=== PATIENT | male | born 1940 | race Caucasian/White ===

== ENCOUNTER → 2024-01-02 06:45 | Outpatient (REF) | payer MEDICARE, OTHER, SELFPAY ==
[2024-01-02 08:40] LABS: Blood Urea Nitrogen 32 mg/dl (9-20); Calcium 9.7 mg/dl (8.4-10.2); Carbon Dioxide 26 mmol/L (22-30); Chloride 104 mmol/L (98-107); Glucose 101 mg/dl (70-99); Potassium 4.5 mmol/L (3.5-5.1); Sodium 142 mmol/L (135-145); Uric Acid 4.4 mg/dl (3.5-8.5); eGFR 42.49
[2024-01-03 17:15] LABS: PSA Total 0.7 ng/mL (0.0-4.0)
== END ==
LOC: REG 06:45
PROVIDERS: ATTENDING PHYSICIAN Internal Medicine; REFERRING PHYSICIAN Specialist
DX: I10 Essential (primary) hypertension (principal); M10.9 Gout, unspecified; N40.1 Benign prostatic hyperplasia with lower urinary tract symptoms; E78.5 Hyperlipidemia, unspecified; R73.03 Prediabetes; N18.31 Chronic kidney disease, stage 3a
CPT/HCPCS: 36415; 80048; 83036; 84153; 84154; 84550

== ENCOUNTER 2024-05-23 12:06 | Emergency (ER) | payer MEDICARE, OTHER, SELFPAY ==
[2024-05-23 12:16] VITALS: BP 115/72
--- NOTE | 2024-05-23 13:52 | ED.GENMED ---
History of Present Illness
General
Chief Complaint: Musculo-Skeletal Complaint
Time Seen by Provider: 05/23/24 13:24
History of Present Illness
History of Present Illness:
Patient is a 83-year-old man with history of hypertension presenting to the emergency room after a fall. Patient slipped and fell down 8 steps. Initially he told nursing that he did not hit his head however to me he stated that he did hit his
head. However he states that the most injury occurred to his left shoulder. He states that there is pain with movement of the shoulder. No numbness tingling. No weakness. He was ambulatory. He did not lose consciousness. He is not on a blood
thinner.
Phy Exam
Physical Exam
Physical Exam:
GENERAL: no acute distress
HEENT: atraumatic, extraocular muscles intact, no signs of entrapment, dentition intact, no other obvious trauma
NECK: no midline tenderness, normal range of motion
BACK: no midline tenderness, no other obvious trauma
CHEST: no tenderness, no flail segment, no subcutaneous emphysema, no other obvious trauma
LUNGS: clear to auscultation bilaterally
CARDIOVASCULAR: regular rate and rhythm
ABDOMEN: soft, non-tender, no masses, no other obvious trauma
PELVIS: stable, no obvious injury
EXTREMITIES: Left upper extremity with tenderness to the distal clavicle with some bruising, no skin tenting or obvious abnormality otherwise moving all extremities, distal pulses intact, no other obvious trauma
NEUROLOGIC: awake, alert x 3, no focal deficits
Course
Orders/Labs/Results
Orders:
Orders
05/23/24 12:28
CR Shoulder, Trauma - Left Urgent
Comment:
Reason For Exam: fall
05/23/24 13:51
CT Cervical Spine W/o Iv Contr Urgent
Comment:
Reason For Exam: fall
CT Head W/o Iv Contrast Urgent
Comment:
Reason For Exam: fall
05/23/24 13:57
Shoulder Immobilizer Left- Tx ONCE
Vital Signs
Initial and Last Documented VS:
Initial Vital Signs
Temp Pulse BP Pulse Ox
97.5 F 67 115/72 94
05/23/24 12:16 05/23/24 12:16 05/23/24 12:16 05/23/24 12:16
Last Documented Vital Signs
Temp Pulse BP Pulse Ox
97.5 F 67 115/72 94
05/23/24 12:16 05/23/24 12:16 05/23/24 12:16 05/23/24 12:16
MDM/Problems Addressed
Differential Diagnosis Includes:
Patient is a 83-year-old man presenting to the emergency department after a fall with head strike and left shoulder pain. Vitals unremarkable and exam does show tenderness to the distal clavicle. X-ray obtained prior to my evaluation does show a
distal clavicle fracture per my interpretation. Per the official read it is comminuted. Given the comminution we will discuss with orthopedics in case he needs operative management. Given the patient had a head strike with his age and the fall
down 8 steps I did discuss [address] head with concern for traumatic intracranial injury patient is in agreement with obtaining CT head and neck.
*Critical Care Note
Total Time (30-74mins, 75-104mins- exclusive of procedures): Not Applicable
Update Note
Update Note:
I did discuss with orthopedic Dr. Beaulieu regarding the clavicle fracture as it is comminuted and could require operative management. Orthopedic is in agreement with sling and outpatient management. Patient advised to keep the sling on day and
night and only to remove it when showering. CT scan of the head and neck with no acute abnormality. Patient aware of the degenerative disc disease. Will discharge at this time with strict return precautions.
ED Attending Note
-
Portions of this chart may have been created with voice recognition software.� Occasional wrong word or��sound alike� substitutions may have occurred due to the inherent limitations of voice recognition software.
Discharge Plan
Departure
Patient Disposition: Home (Routine Discharge)
Date of Disposition: 05/23/24
Time of Disposition: 16:46
Patient with high blood pressure during this ER visit?: No
Discharge Problem:
Clavicle fracture
Instructions: How to Use a Shoulder Sling
Prescriptions:
No Action
fexofenadine [Suzie] 180 mg Tablet
180 mg PO DAILYPRN PRN (Reason: allergies)
acetaminophen [Tylenol Extra Strength] 500 mg Tablet
500 mg PO Q6HPRN PRN (Reason: mild pain)
lisinopril-hydrochlorothiazide 10-12.5 mg Tablet
1 tab PO DAILY
finasteride 5 mg Tablet
5 mg PO Q48H
febuxostat 80 mg Tablet
80 mg PO DAILY
dorzolamide-timolol (PF) 2-0.5 % Dropperette
1 drp LEFT EYE BID
Referrals:
Terri Beaulieu I., [Active] - Call in 1-3 days for appt
Branden Gutiérrez MD [Family Provider] -
Activity Restrictions/Additional Instructions:
You were seen in the Emergency Department today for a fall. While you were here we performed an x-ray which does show a clavicle fracture. Please make sure you follow-up with your orthopedic surgeon. Please keep the sling on with the back strap
day and night. You may take it off while you shower. Your CT scan of your neck did show some narrowing between the disc. Please see the official report below.
We would like for you to follow up with your primary care physician for further evaluation. If you experience fever, worsening of your symptoms, or develop any other new or concerning symptoms, please return to the Emergency Department immediately.
Please see the attached sheet for additional information.
CT cervical spine: Multilevel severe degenerative changes most pronounced at C5-C6 and C6-C7 with resultant high-grade canal stenosis..
Interventions
Interventions:
*Risk Screen - Suicide Last Done: 05/23/24 12:21
*General Assessment Last Done: 05/23/24 12:21
*Neglect/Abuse Screening Last Done: 05/23/24 13:36
*ED- Fall Risk Assessment Last Done: 05/23/24 13:36
*ED COVID-19 Vaccine History Last Done: 05/23/24 12:21
ED-Musculoskeletal Assessment Last Done: 05/23/24 13:36
Discharge Date and Time
Print Language: BHUTANESE
[2024-05-23 16:55] VITALS: BP 121/68
== END 2024-05-23 17:01 | disposition home or self-care (01) ==
LOC: EMR 12:06
PROVIDERS: EMERGENCY PHYSICIAN Student in an Organized Health Care Education/Training Program; FAMILY PHYSICIAN Internal Medicine
DX: S42.032A Displaced fracture of lateral end of left clavicle, initial encounter for closed fracture (principal); S09.90XA Unspecified injury of head, initial encounter; S40.012A Contusion of left shoulder, initial encounter; W10.9XXA Fall (on) (from) unspecified stairs and steps, initial encounter; I10 Essential (primary) hypertension; Z88.2 Allergy status to sulfonamides; Z88.8 Allergy status to other drugs, medicaments and biological substances
CPT/HCPCS: 99284; 29240; 70450; 72125; 73030

== ENCOUNTER → 2025-02-08 12:11 | Outpatient (REF) | payer MEDICARE, OTHER, SELFPAY | LOC: REG 12:11 | PROVIDERS: ATTENDING PHYSICIAN Internal Medicine | DX: I10 Essential (primary) hypertension (principal); M17.11 Unilateral primary osteoarthritis, right knee; E78.5 Hyperlipidemia, unspecified; R73.03 Prediabetes; K21.9 Gastro-esophageal reflux disease without esophagitis; Z80.42 Family history of malignant neoplasm of prostate; N40.1 Benign prostatic hyperplasia with lower urinary tract symptoms | CPT/HCPCS: 36415; 84153; 84154 ==